=== PATIENT | male | born 1965 | race American Indian/Alaskan Native ===

== ENCOUNTER 2020-07-13 12:29 | Emergency (ER) | payer OTHER ==
--- NOTE | 2020-07-13 13:39 | Event Note ---
ED Screening Note Date of service: 07/13/20 Time: 13:36 ED Screening Note: 55-year-old -Citizen Of [place] male presents to the emergency room complaining of mouth ulcers and epigastric abdominal pain. Patient states that he was constipated right after Thanksgiving and was able to move 14 logs which she reports are bowel movements. He states at that time his stomach seemed to improve. Patient reports now he has epigastric abdominal pain. He says he is only been able to drink hot tea and eat Jell-O and pudding. Patient reports he has been drinking alcohol and has a history of pancreatitis. This initial assessment/diagnostic orders/clinical plan/treatment(s) is/are subject to change based on patients health status, clinical progression and re- assessment by fellow clinical providers in the ED. Further treatment and workup at subsequent clinical providers discretion. Patient/guardian urged not to elope from the ED as their condition may be serious if not clinically assessed and managed. Initial orders include:
[2020-07-13 14:24] LABS: Hemoglobin 10.2 gm/dl (11.8-15.2); Mean Corpuscular HGB Conc 34 % (32-34); Mean Corpuscular Volume 82 fl (84-94); Platelet Count 607 K/mm3 (140-440); Red Blood Count 3.67 M/mm3 (3.65-5.03); Red Cell Distribution Width 17.2 % (13.2-15.2)
[2020-07-13 14:46] LABS: Alanine Aminotransferase 15 units/L (7-56); Albumin 2.9 g/dL (3.9-5); Blood Urea Nitrogen 7 mg/dL (9-20); Calcium 9.2 mg/dL (8.4-10.2); Hemolysis Index 27
[2020-07-13 14:54] LABS: BUN/Creatinine Ratio 14
[2020-07-13] MEDS ORDERED: SODIUM CHLORIDE 0.9% 1000 ML 1,000 ML IV ONE ×2 (16:51)
[2020-07-13] MEDS ORDERED: ONDANSETRON 4 MG/2 ML INJ ONE (17:05)
[2020-07-13] MEDS ORDERED: ONDANSETRON 4 MG/2 ML INJ IV ONE (17:11)
[2020-07-13] MEDS ORDERED: PANTOPRAZOLE 40 MG INJ IV ONE (17:25)
--- NOTE | 2020-07-13 17:25 | Emergency Department Report ---
ED Abdominal Pain HPI - General Chief Complaint: Dental/Oral Stated Complaint: CANT EAT/SORE THROAT PUI?: No Time Seen by Provider: 07/13/20 16:50 Source: patient Mode of arrival: Ambulatory Limitations: No Limitations - History of Present Illness Initial Comments: CC: "I have digestive issues." HPI: This is a 55 yo male with hx of pancreatitis, hepatitis C and alcohol dependence who presents with abdominal pain and mouth sores for 1 1/2 weeks. Patient has been ill for the past 6-8 months. He has lost 30-40 pounds over that time. He has had poor appetite. Over the past 1 1/2 weeks, he has had intermittent achy pain central abdomen radiating to chest and throat. He has white sores in his mouth present for at least 6 days. No hx of HIV. Recently moved from [place] to stay with sister. Recently hospitalized last month for bacterial infection in his blood. MD Complaint: abdominal pain -: Gradual, week(s) (1.5) Location: diffuse Radiation: none Migration to: no migration Severity: moderate Severity scale (0 -10): 7 Quality: aching Consistency: intermittent Improves With: nothing Worsens With: eating Associated Symptoms: nausea, vomiting, anorexia, other (Weight loss, white sores in mouth) - Related Data Previous Rx's Medication Instructions Recorded Last Taken Type Fluconazole [Diflucan ORAL SOLN] 10 ml PO QDAY 14 Days #140 ml 07/13/20 Unknown Rx Allergies Allergy/AdvReac Type Severity Reaction Status Date / Time No Known Allergies Allergy Unverified 07/13/20 12:53 ED Review of Systems ROS: Stated complaint: CANT EAT/SORE THROAT Other details as noted in HPI Comment: All other systems reviewed and negative Constitutional: malaise, weakness. denies: fever Respiratory: denies: cough, shortness of breath Cardiovascular: denies: chest pain Gastrointestinal: abdominal pain, nausea, vomiting. denies: diarrhea, constipation ED Past Medical Hx - Past Medical History Previous Medical History?: Yes Additional medical history: Pancreatitis, hepatitis C - Surgical History Past Surgical History?: Yes Additional Surgical History: ORIF leg fracture - Social History Smoking Status: Current Every Day Smoker Substance Use Type: Alcohol, Marijuana - Medications Home Medications: Home Medications Medication Instructions Recorded Confirmed Last Taken Type Fluconazole [Diflucan ORAL SOLN] 10 ml PO QDAY 14 Days #140 ml 07/13/20 Unknown Rx ED Physical Exam - General Limitations: No Limitations General appearance: alert, in no apparent distress, cachectic, other (Appears chronically ill) - Head Head exam: Present: atraumatic, normocephalic - Eye Eye exam: Present: normal appearance - ENT ENT exam: Present: mucous membranes dry, other (White patches involving tongue gums) - Neck Neck exam: Present: normal inspection, full ROM - Respiratory Respiratory exam: Present: normal lung sounds bilaterally. Absent: respiratory distress, wheezes, rales, rhonchi - Cardiovascular Cardiovascular Exam: Present: regular rate, normal rhythm, normal heart sounds. Absent: systolic murmur, diastolic murmur, rubs, gallop - GI/Abdominal GI/Abdominal exam: Present: soft, normal bowel sounds. Absent: distended, tenderness, guarding, rebound - Rectal Rectal exam: Present: deferred - Extremities Exam Extremities exam: Present: normal inspection - Neurological Exam Neurological exam: Present: alert, oriented X3 - Psychiatric Psychiatric exam: Present: normal affect, normal mood - Skin Skin exam: Present: warm, dry, intact, normal color. Absent: rash ED Medical Decision Making - Lab Data Result diagrams: 07/13/20 13:49 07/13/20 13:49 - Radiology Data Radiology results: report reviewed, image reviewed CT abdomen pelvis w con INDICATION / CLINICAL INFORMATION: vomiting jaundice difficulty with eating anorexia. TECHNIQUE: All CT scans at this location are performed using CT dose reduction for ALARA by means of automated exposure control. COMPARISON: None available. FINDINGS: No free fluid is seen in the abdomen. There is a large calcified mass in the pancreatic head with intravenous and extrahepatic biliary dilatation and pancreatic duct dilatation. The kidneys, spleen, adrenal glands and great vessels are normal. No enlarged mesenteric or retroperitoneal lymph nodes are seen. In the pelvis, no free fluid is seen. No enlarged lymph nodes are identified. The bladder is normal. No significant skeletal abnormality is present. IMPRESSION: 1. Large calcified mass in the pancreatic head extending either changes of chronic pancreatitis or neoplasm. Pancreatic duct dilatation is present 2. Intra and extrahepatic biliary dilatation - Medical Decision Making 1. Abdominal pain anorexia: CT scan revealed pancreatic mass concerning for n eoplasm. Patient was given diagnosis of pancreatic tumor this year. He is unclear on treatment recommendations. It appears that biopsy was recommended. 2. Thrush: Possible esophageal thrush. HIV test ordered 3. Dehydration due to poor p.o. intake, alcohol dependence. IV hydration given in the emergency department. 4. Medication noncompliance: Patient apparently has had extensive work-up for symptoms in [place]. He has chosen not to comply with medical recommendations because he states that "I have a drinking problem." Patient understands any he should follow-up with outpatient medicine physician, GI specialist and general surgeon. He understands that he will need a biopsy for diagnosis. He understands the possibility of cancer. It is unclear if he is motivated to pursue medical treatment. He will contact his primary physician in [place] to assist with coordinat ion of medical care in [place]. Critical care attestation.: If time is entered above; I have spent that time in minutes in the direct care of this critically ill patient, excluding procedure time. ED Disposition Clinical Impression: Pancreatic mass, Dehydration, Thrush Disposition: TO HOME OR SELFCARE Is pt being admited?: No Does the pt Need Aspirin: No Condition: Stable Instructions: Oral Thrush, Adult Additional Instructions: You have a tumor on your pancreas. You will need a biopsy. Please follow-up with all 3 physicians listed below. Prescriptions: Fluconazole [Diflucan ORAL SOLN] 10 ml PO QDAY 14 Days #140 ml Referrals: JAN NOLASCO MD [Staff Physician] - 3-5 Days HOSEA MCADAMS MD [Staff Physician] - 3-5 Days SHANIQUE ABERNATHY DO [Staff Physician] - 3-5 Days
--- NOTE | 2020-07-13 17:59 | Cat Scan Report ---
CT abdomen pelvis w con INDICATION / CLINICAL INFORMATION: vomiting jaundice difficulty with eating anorexia. TECHNIQUE: All CT scans at this location are performed using CT dose reduction for ALARA by means of automated e xposure control. COMPARISON: None available. FINDINGS: No free fluid is seen in the abdomen. There is a large calcified mass in the pancreatic head with int ravenous and extrahepatic biliary dilatation and pancreatic duct dilatation. The kidneys, spleen, adr enal glands and great vessels are normal. No enlarged mesenteric or retroperitoneal lymph nodes are s een. In the pelvis, no free fluid is seen. No enlarged lymph nodes are identified. The bladder is normal. No significant skeletal abnormality is present. IMPRESSION: 1. Large calcified mass in the pancreatic head extending either changes of chronic pancreatitis or ne oplasm. Pancreatic duct dilatation is present 2. Intra and extrahepatic biliary dilatation Signer Name: Sabas Green MD FACR Signed: 07/13/2020 5:55 PM Workstation Name: [id number]
[2020-07-13 22:15] VITALS: BP 129/88
[2020-07-20 12:59] LABS: HIV-2 Antibody Differentiation Non-reactive
[2020-07-20 13:00] LABS: HIV-1 Antibody Differentiation Non-reactive
== END 2020-07-13 22:20 | disposition home or self-care (01) ==
LOC: ED 12:29
DX: B37.0 Candidal stomatitis (principal); E86.0 Dehydration; K86.89 Other specified diseases of pancreas; F17.200 Nicotine dependence, unspecified, uncomplicated; F12.90 Cannabis use, unspecified, uncomplicated; Z79.899 Other long term (current) drug therapy; Z98.890 Other specified postprocedural states
CPT/HCPCS: 36415; 74177; 80053; 83690; 85027; 86689; 96361; 96374; 96375; 99284; C9113; J2405; J7030; Q9967; 80320; G0480